=== PATIENT | male | born 1975 | race Caucasian/White ===

== ENCOUNTER 2022-11-07 19:18 | Emergency (ER) | payer BC ==
[2022-11-07] MEDS ORDERED: Colchicine 0.6 MG Tab PO ONE ×2 (19:50)
== END 2022-11-07 20:08 | disposition home or self-care (01) ==
LOC: JP.ED 19:18
DX: M10.9 Gout, unspecified (principal); I10 Essential (primary) hypertension; Z79.899 Other long term (current) drug therapy; Z86.16 Personal history of COVID-19
CPT/HCPCS: 99283; A9270; 99282

== ENCOUNTER 2023-01-09 12:25 | Emergency (ER) | payer BC | END 2023-01-09 13:25 | disposition left against medical advice (07) | LOC: JP.ED 12:25 | DX: Z53.21 Procedure and treatment not carried out due to patient leaving prior to being seen by health care provider (principal) ==

== ENCOUNTER 2023-04-04 06:04 | Day surgery (SDC) | payer BC ==
[~2023-04-04 06:04] MED LIST: Midazolam 1 MG/ML 2 ML SDV ONE; Propofol 200 MG/20 ML SDV ONE; fentaNYL 100 MCG/2 ML SDV ONE
[2023-04-04] MEDS: Lactated Ringers 1,000 ML IV SCH (06:57)
[2023-04-04] MEDS ORDERED: Propofol 200 MG/20 ML SDV ONE (08:00)
== END 2023-04-04 09:06 | disposition home or self-care (01) ==
LOC: JP.SDS 06:04
PROVIDERS: ATTEND Student in an Organized Health Care Education/Training Program
DX: Z12.11 Encounter for screening for malignant neoplasm of colon (principal); D12.3 Benign neoplasm of transverse colon; D12.2 Benign neoplasm of ascending colon; K57.30 Diverticulosis of large intestine without perforation or abscess without bleeding; I10 Essential (primary) hypertension; R73.03 Prediabetes; F10.20 Alcohol dependence, uncomplicated; E66.9 Obesity, unspecified; Z88.8 Allergy status to other drugs, medicaments and biological substances; Z68.41 Body mass index [BMI] 40.0-44.9, adult
CPT/HCPCS: J2250; J2704; J3010; J7120